=== PATIENT | male | born 2000 | race Caucasian/White ===

== ENCOUNTER 2020-03-26 10:01 | Emergency (ER) | payer BC ==
[2020-03-26] MEDS ORDERED: Ibuprofen 800 MG Tab PO ONE (11:20)
[2020-03-26] MEDS ORDERED: Ibuprofen 800 MG Tab ONE (11:22)
--- NOTE | 2020-03-26 11:23 | EDM.PDOC ---
ED HPI GENERAL MEDICAL PROBLEM - General Chief Complaint: ENT Problem Stated Complaint: EAR ACHE Time Seen by Provider: 03/26/20 10:30 Source of Information: Reports: Patient, Family History Limitations: Reports: No Limitations - History of Present Illness INITIAL COMMENTS - FREE TEXT/NARRATIVE: Patient is 19 y/o male who presents for left sided ear pain since 0130 this morning. NO tylenol or motrin. Patient with sulfa and augmentin allergies. ED ROS GENERAL - Review of Systems Review Of Systems: See Below Constitutional: Reports: No Symptoms HEENT: Reports: Ear Pain Respiratory: Reports: No Symptoms Cardiovascular: Reports: No Symptoms Endocrine: Reports: No Symptoms GI/Abdominal: Reports: No Symptoms Skin: Reports: No Symptoms Neurological: Reports: No Symptoms ED EXAM, GENERAL - Physical Exam Exam: See Below Exam Limited By: No Limitations General Appearance: Alert, No Apparent Distress Ear Exam: Right Ear: TM normal, Left Ear: Discharge, Erythema, TM Perforation, Bilateral Ear: Auricle Normal, Canal Normal Head: Atraumatic, Normocephalic Respiratory/Chest: No Respiratory Distress, No Accessory Muscle Use Neurological: Alert, Oriented Skin Exam: Warm, Dry Course - Orders/Labs/Meds Meds: Medications Discontinued Medications Generic Name Dose Route Start Last Admin Trade Name Freq PRN Reason Stop Dose Admin Ibuprofen Confirm 03/26/20 11:22 Motrin Administered 03/26/20 11:23 Dose 800 mg .ROUTE .STK-MED ONE Departure - Departure Time of Disposition: 11:30 Disposition: Home, Self-Care 01 Condition: Good Clinical Impression: Otitis media Qualifiers: Otitis media type: unspecified Laterality: left Qualified Code(s): H66.92 - Otitis media, unspecified, left ear - Discharge Information *PRESCRIPTION DRUG MONITORING PROGRAM REVIEWED*: Not Applicable *COPY OF PRESCRIPTION DRUG MONITORING REPORT IN PATIENT JANNET: Not Applicable Instructions: Otitis Media, Adult, [id number] Referrals: PCP,None [Primary Care Provider] - - Assessment/Plan Plan: Offered patient a toradol injection for his 10/10 left ear pain, but he refused and he called him mother, whom stated, "my children do not get injections."
[2020-03-26] MEDS ORDERED: Azithromycin 250 MG Tab ONE (11:25)
== END 2020-03-26 11:28 | disposition home or self-care (01) ==
LOC: LB.ED 10:01
DX: H66.92 Otitis media, unspecified, left ear (principal)
CPT/HCPCS: 99282; A9270